=== PATIENT | female | born 1955 | race Caucasian/White ===

== ENCOUNTER → 2023-12-25 11:08 | Outpatient (REF) | payer OTHER, SELFPAY | LOC: HWWDC 11:08 | PROVIDERS: ATTENDING PHYSICIAN Nurse Practitioner | DX: Z12.31 Encounter for screening mammogram for malignant neoplasm of breast (principal) | CPT/HCPCS: 77063; 77067 ==

== ENCOUNTER → 2023-12-30 09:56 | Outpatient (REF) | payer OTHER, SELFPAY | LOC: WDC 09:56 | PROVIDERS: ATTENDING PHYSICIAN Nurse Practitioner | DX: R92.8 Other abnormal and inconclusive findings on diagnostic imaging of breast (principal) | CPT/HCPCS: 77065 ==

== ENCOUNTER → 2024-01-06 06:33 | Outpatient (REF) | payer OTHER, SELFPAY ==
--- NOTE | 2024-01-06 09:13 | OID.BR.INTR ---
OID Breast Navigator - Initial
- -
Date of Contact: 01/06/24
Met with patient. Patient given written information on navigator services and support services available at [facility]. Will follow up as needed per protocol.
== END ==
LOC: WDC 06:33
PROVIDERS: ATTENDING PHYSICIAN Nurse Practitioner Family
DX: R92.1 Mammographic calcification found on diagnostic imaging of breast (principal)
CPT/HCPCS: 88305; 19081; 76098; A4648

== ENCOUNTER → 2024-02-20 13:17 | Outpatient (REF) | payer OTHER, SELFPAY | LOC: HWRAD 13:17 | PROVIDERS: ATTENDING PHYSICIAN Nurse Practitioner | DX: E04.1 Nontoxic single thyroid nodule (principal) | CPT/HCPCS: 76536 ==

== ENCOUNTER → 2024-07-14 08:25 | Outpatient (REF) | payer OTHER, SELFPAY ==
[2024-07-14 08:44] VITALS: BP 133/73; BP_SYST 68
== END ==
LOC: RADI 08:25
PROVIDERS: ATTENDING PHYSICIAN Nurse Practitioner Family; FAMILY PHYSICIAN Nurse Practitioner
DX: E04.2 Nontoxic multinodular goiter (principal)
CPT/HCPCS: 88173; 10005; 10006

== ENCOUNTER → 2024-09-03 14:46 | Outpatient (REF) | payer OTHER, SELFPAY | LOC: HWWDC 14:46 | PROVIDERS: ATTENDING PHYSICIAN Internal Medicine | DX: R92.8 Other abnormal and inconclusive findings on diagnostic imaging of breast (principal) | CPT/HCPCS: 77061; 77065 ==

== ENCOUNTER 2024-09-28 06:15 | Day surgery (SDC) | payer OTHER, SELFPAY ==
[2024-09-20 10:48] LABS: Hematocrit 44.3 % (37.0-47.0); Hemoglobin 14.8 g/dL (12.0-16.0); Mean Corp Hgb Conc. 33.4 g/dL (33.0-37.0); Mean Corpuscular Hgb 29.9 pg (27.0-31.0); Mean Corpuscular Volume 89.5 fL (81.0-99.0); Mean Platelet Volume 9.4 fL (7.4-10.4); Platelet Count 304 10^3/uL (130-400); Red Blood Cell Count 4.95 10^6/uL (4.20-5.40); Red Cell Dist. Width 13.4 % (11.5-14.5); White Blood Cell Count 5.9 10^3/uL (4.8-10.8)
[2024-09-20 11:08] LABS: APTT 28.4 Sec (23.4-35.0); INR 0.94; PT 12.9 Sec (11.4-14.6)
[2024-09-20 11:14] LABS: ALT (SGPT) 62 U/L (0-35); AST (SGOT) 42 U/L (14-36); Albumin 4.6 g/dl (3.5-5.0); Alkaline Phosphatase 63 U/L (38-126); Blood Urea Nitrogen 19 mg/dl (7-17); Calcium 9.7 mg/dl (8.4-10.2); Carbon Dioxide 31 mmol/L (22-30); Chloride 98 mmol/L (98-107); Glucose 107 mg/dl (70-99); Sodium 139 mmol/L (135-145); Total Bilirubin 0.7 mg/dl (0.2-1.3); Total Protein 7.8 g/dl (6.3-8.2); eGFR > 60.00
[2024-09-20 14:04] VITALS: BMI 37.3
[2024-09-28] VITALS (9 sets, daily range): BP systolic 103–135; BP diastolic 56–71; BMI 37.3
[2024-09-28] MEDS: NORMOSOL-R/PLASMALYTE-A 1000 IV (08:00)
[2024-09-28] MEDS: HEPARIN 5000 UNITS SC (08:02)
[2024-09-28] MEDS: NEURONTIN 300 MG PO (08:02)
[2024-09-28] MEDS: TYLENOL 1000 MG PO (08:02)
--- NOTE | 2024-09-28 10:22 | OR.RPT ---
Operative Report
Operative Report
DATE OF OPERATION: September 28, 2024
PREOPERATIVE DIAGNOSIS: �Thyroid Nodule - E041
POSTOPERATIVE DIAGNOSIS: Same
SURGEON: Truman Kaur M.D.
OPERATION: �Right Thyroidectomy and Limited Neck Dissection - 23930
ANESTHESIA: GET
ESTIMATED BLOOD LOSS: 2 cc
DRAINS: None
SPECIMEN: �Right thyroid lobe and isthmus and right level paratracheal tissue
FINDINGS: Multiple nodules
COMPLICATIONS:� None
PROCEDURE:
The patient was taken to the operating room and placed in the usual supine position. After adequate general endotracheal anesthesia was established, the patient�s neck was extended, prepped, and draped in the typical sterile fashion. A 5 cm
transcervical incision was made two fingerbreadths above the sternal notch. The skin incision was made with the #15 blade, which was taken through the skin into the subcutaneous tissue. The underlying platysma muscle was divided, and subplatysmal
flaps were created superiorly to the thyroid cartilage and inferiorly to the sternal notch. Strap muscles were identified and at the midline.
Attention was turned to the patient�s right thyroid lobe. The right thyroid lobe was mobilized medially. During this process, the right middle thyroid vein and inferior thyroid artery were dissected and ligated with Ligasure. Next, the right
superior pole was taken down by dissecting and transecting the superior pole vessels with a Ligasure. The right thyroid lobe was mobilized medially. During this process, the right recurrent laryngeal nerve was identified and preserved throughout its
entire course. The right inferior parathyroid gland was identified and preserved. The right thyroid lobe with isthmus was resected off the trachea and sent to the pathology department.
At this time, the right neck dissection was performed. The tissue between the right carotid artery to the trachea into the anterior mediastinum was carefully dissected. The previously identified recurrent laryngeal nerve and parathyroid glands were
preserved. The tissue was removed and sent to the pathology department.
After obtaining adequate hemostasis, the strap muscle was approximated with #3-0 Vicryl in a running fashion, and platysma muscles were reapproximated with #3-0 Vicryl in an interrupted fashion, and the skin was approximated with #4-0 Monocryl in a
running subcuticular fashion. Steri-strips and sterile dressings were placed. The patient tolerated the procedure well. The final instrument, needle, and sponge counts were correct.
[2024-09-28] MEDS: DILAUDID 0.25 MG IV (10:36)
[2024-09-28] MEDS: ZOFRAN 4 MG IV (11:18)
[2024-09-28] MEDS: TYLENOL 650 MG PO (14:46)
== END 2024-09-28 15:27 | disposition home or self-care (01) ==
LOC: SDS 06:15
PROVIDERS: ATTENDING PHYSICIAN Surgery
DX: E04.2 Nontoxic multinodular goiter (principal); E06.3 Autoimmune thyroiditis; R59.0 Localized enlarged lymph nodes
CPT/HCPCS: 60220; 88305; 88307; 36415; 80053; 85027; 85610; 85730; 93005; C1776

== ENCOUNTER → 2024-12-27 10:10 | Outpatient (REF) | payer OTHER, SELFPAY | LOC: HWWDC 10:10 | DX: Z12.31 Encounter for screening mammogram for malignant neoplasm of breast (principal) | CPT/HCPCS: 77063; 77067 ==

== ENCOUNTER → 2025-02-15 10:56 | Outpatient (REF) | payer OTHER, SELFPAY | LOC: HWRAD 10:56 | DX: M54.2 Cervicalgia (principal); R52 Pain, unspecified; R00.2 Palpitations; R06.09 Other forms of dyspnea; M25.551 Pain in right hip; M25.552 Pain in left hip | CPT/HCPCS: 71046; 72050; 73523 ==

== ENCOUNTER → 2025-05-09 11:16 | Outpatient (REF) | payer OTHER, SELFPAY | LOC: HWRAD 11:16 | PROVIDERS: ATTENDING PHYSICIAN Internal Medicine Endocrinology, Diabetes & Metabolism | DX: E04.2 Nontoxic multinodular goiter (principal) | CPT/HCPCS: 76536 ==